=== PATIENT | male | born 1980 | race African-American/Black ===

== ENCOUNTER 2019-02-12 17:36 | Inpatient (IN) | payer OTHER ==
[~2019-02-12] VITALS: Ht 167.6 cm; Wt 99.8 kg
--- OUTSIDE RECORDS SUMMARY | 2019-02-12 17:40 | XMS REPORT | Clinical Summary ---
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 Active Problems Not on file Encounters Care Team Description Date Type Specialty Denisse Castillo, Renal colic (Primary Dx); Hypertension, unspecified type 05/07/2018 Emergency Emergency Medicine - 05/08/2018 after 02/11/2018 Social History Date Tobacco Use Types Packs/Day Years Used Current Some Day Smoker Smokeless Tobacco: Current User Alcohol Use Drinks/Week oz/Week Comments Yes occasional Sex Assigned at Date Recorded Not on file Industry Job Start Date Occupation Not on file Not on file Not on file Travel End Travel History Travel Start No recent travel history available. Last Filed Vital Signs Time Taken Vital Sign Reading 05/08/2018 12:00 AM CDT Blood Pressure 160/83 05/08/2018 12:00 AM CDT Pulse 66 05/07/2018 10:23 PM CDT Temperature 36.2 C (97.2 F) 05/08/2018 12:00 AM CDT Respiratory Rate 22 05/08/2018 12:00 AM CDT Oxygen Saturation 96% - Inhaled Oxygen - Concentration 05/07/2018 10:28 PM CDT Weight 99.8 kg (220 lb) 05/07/2018 10:28 PM CDT Height 170.2 cm (5' 7") 05/07/2018 10:28 PM CDT Body Mass Index 34.46 Plan of Treatment Health Maintenance Due Date Last Done Comments INFLUENZA VACCINE 03/06/2019 Procedures Comments Procedure Name Priority Date/Time Associated Diagnosis CT ABDOMEN PELVIS W STAT 05/07/2018 CONTRAST 10:59 PM CDT URINALYSIS STAT 05/07/2018 10:41 PM CDT ESTIMATED GFR STAT 05/07/2018 10:34 PM CDT COMPREHENSIVE METABOLIC STAT 05/07/2018 PANEL 10:34 PM CDT HC COMPLETE BLD COUNT STAT 05/07/2018 W/AUTO DIFF 10:34 PM CDT after 02/11/2018 Results * CT Abdomen Pelvis W Contrast (05/07/2018 10:59 PM CDT) Specimen Narrative Performed At Examination:CT ABDOMEN PELVIS W CONTRAST RADIANT Clinical History: right sided abd painvomiting Comparison: None. Findings: CT scans are performed using radiation dose reduction techniques.Technical factors are evaluated and adjusted to ensure appropriate moderation of exposure.Automated dose management technology is applied to adjust radiation exposure while achieving a diagnostic quality image. CT scan of the abdomen and pelvis was performed after intravenous contrast. The liver, spleen, pancreas, gallbladder, and adrenal glands are unremarkable. The left kidney is within normal limits without hydronephrosis. There is mild right hydronephrosis and hydroureter. There is a 1 mm right distal ureteral calculus located just proximal to the ureterovesical junction. The appendix is visualized and unremarkable. No bowel thickening or fat stranding is seen. No bowel dilatation is seen. No free air or fluid is seen. Urinary bladder is unremarkable. The visualized lung bases are clear. IMPRESSION: 1. Right 1 mm distal ureteral calculus located just proximal to the ureterovesical junction with mild right hydronephrosis. [facility]-[id number] Procedure Note Interface, Radiology Results Incoming - 05/07/2018 11:09 PM CDT Examination: CT ABDOMEN PELVIS W CONTRAST Clinical History: right sided abd pain vomiting Comparison: None. Findings: CT scans are performed using radiation dose reduction techniques. Technical factors are evaluated and adjusted to ensure appropriate moderation of exposure. Automated dose management technology is applied to adjust radiation exposure while achieving a diagnostic quality image. CT scan of the abdomen and pelvis was performed after intravenous contrast. The liver, spleen, pancreas, gallbladder, and adrenal glands are unremarkable. The left kidney is within normal limits without hydronephrosis. There is mild right hydronephrosis and hydroureter. There is a 1 mm right distal ureteral calculus located just proximal to the ureterovesical junction. The appendix is visualized and unremarkable. No bowel thickening or fat stranding is seen. No bowel dilatation is seen. No free air or fluid is seen. Urinary bladder is unremarkable. The visualized lung bases are clear. IMPRESSION: 1. Right 1 mm distal ureteral calculus located just proximal to the ureterovesical junction with mild right hydronephrosis. [facility]-[id number] Performing Organization Address City/State/Zipcode Phone Number [facility] [address] [place] [address] * Urinalysis (05/07/2018 10:41 PM CDT) Glucose, UA Negative Negative [facility] Bilirubin, UA Negative Negative [facility] Ketones, UA Negative Negative [facility] Specific 1.020 1.001 - 1.035 DEPARTMENT gravity, UA [facility] Blood, UA Trace (A) Negative [facility] pH, UA 6.0 5.0 - 8.5 [facility] Protein, UA Negative Negative [facility] Urobilinogen, <2.0 <2.0 DEPARTMENT UA [facility] Nitrite, UA Negative Negative [facility] Leukocyte Negative Negative DEPARTMENT esterase, UA [facility] Color, UA Yellow [facility] Appearance, UA Clear [facility] Specimen Urine Performing Organization Address City/[facility]/Zipcode Phone Number DEPARTMENT OF [address] [place] [address] [facility] * Estimated GFR (05/07/2018 10:34 PM CDT) Estimated GFR 79 mL/min/1.73 m2 DEPARTMENT Comment: OF PATHOLOGY CatergoryUnitsInte AND GENOMIC rpretation MEDICINE, G1 SEAN >=90 Normal or high PLANTATION G2 EMERGENCY CARE 60-89Mildly decreased CENTER [id number] Mildly to moderately decreased [id number] Moderately to severely decreased G4 15-29Severely decreased G5 <15Kidney failure The eGFR was calculated using the Chronic Kidney Disease Epidemiology Collaboration (CKD-EPI) equation. Interpretation is based on recommendations of the National Kidney Foundation-Kidney Disease Outcomes Quality Initiative (NKF-KDOQI) published in 2014. Specimen Plasma specimen Performing Organization Address City/State/Zipcode Phone Number DEPARTMENT OF [address] [place] [address] [facility] * CBC with platelet and differential (05/07/2018 10:34 PM CDT) Pathologist [facility] WBC 11.42 (H) 4.50 - 11.00 k/uL [facility] RBC 4.64 4.40 - 6.00 m/uL [facility] HGB 14.1 14.0 - 18.0 g/dL [facility] HCT 42.5 41.0 - 51.0 % [facility] MCV 91.6 82.0 - 100.0 fL [facility] MCH 30.4 27.0 - 34.0 pg [facility] MCHC 33.2 31.0 - 37.0 g/dL [facility] RDW - SD 44.6 37.0 - 55.0 fL [facility] MPV 12.4 8.8 - 13.2 fL [facility] Platelet count 214 150 - 400 k/uL [facility] Specimen Blood Performing Organization Address City/State/Zipcode Phone Number DEPARTMENT OF [address] [place] [address] [facility] * Comprehensive metabolic panel (05/07/2018 10:34 PM CDT) Sodium 147 (H) 128 - 145 mEq/L DEPARTMENT OF PATHOLOGY AND GENOMIC MEDICINE, [facility] Potassium 3.7 3.6 - 5.1 mEq/L [facility] CO2 22 18 - 33 mEq/L [facility] Chloride 108 98 - 108 mEq/L [facility] Glucose 133 (H) 73 - 118 mg/dL [facility] Calcium 9.3 8.0 - 10.3 mg/dL [facility] BUN 10 7 - 22 mg/dL [facility] Creatinine 1.3 (H) 0.7 - 1.2 mg/dL [facility] Alkaline 109 53 - 128 U/L DEPARTMENT phosphatase [facility] ALT 26 10 - 47 U/L [facility] AST 33 11 - 38 U/L [facility] Total bilirubin 0.4 0.2 - 1.6 mg/dL [facility] Albumin 3.7 3.3 - 5.5 g/dL [facility] Protein 7.3 6.4 - 8.1 g/dL [facility] Anion gap 17@ANIO (H) 7 - 15 mEq/L [facility] A/G ratio 1.0 0.7 - 3.8 DEPARTMENT OF PATHOLOGY AND GENOMIC MEDICINE, [facility] Specimen Plasma specimen Performing Organization Address City/State/Zipcode Phone Number DEPARTMENT OF [address] [place] [address] PATHOLOGY AND GENOMIC MEDICINE, [facility] after 02/11/2018 Insurance Type Payer Benefit Subscriber ID Effective Phone Address Plan / Dates Group PPO BCBS BCBS xxxxxxxxxxxx [id number] CHOICE resent PPO/SHRADDHA VICKERS PPO Advance Directives Patient has advance care planning documents on file. For more information, zan garrett contact: Constantine Raaz [address] [place] [address]
--- OUTSIDE RECORDS SUMMARY | 2019-02-12 17:41 | XMS REPORT | Encounter Summary ---
Author Organization Unknown Address [address] [place] [address] Phone [phone] Care Team Providers Care Bran Mixer Name Role Phone Dr. Alvarado Finley 3 [phone] Reason for Visit Essential hypertension; Raised prostate specific antigen Instructions 1. Raised prostate specific antigen 2. Essential hypertension 3. Body mass index 30+ - obesity learning about healthy weight 4. Influenza vaccination declined Discussion Note Use and risks of med, and diagnosis w/ prognosis discussed w/ pt. All questions answered. Plan of Care Reminders Provider Appointments Est Patient on or around 11/27/2018 Nydia Diaz MD Est CPX on or around 08/05/2019 Nydia Diaz MD Lab None recorded. Referral None recorded. Procedures None recorded. Surgeries None recorded. Imaging None recorded. Medications Name Start Date lisinopril 10 mg tablet TAKE 1 TABLET BY MOUTH EVERY DAY Medications Administered None recorded. Vitals Height Weight BMI Blood Pressure 5 ft 5 in 229.2 lbs 38.1 kg/m2 150/98 mm[Hg] Lab Results Date Name Specimen Result Interpretation Description Value Range Status Address 08/05/2018 Microalbumin:creatinine Ratio, Urine Microalbumin Random Urine 6 ug/mL [facility] Laboratory: [address] Normal Creatinine Random Urine 177.3 mg/dL 20.0-370.0 mg/dL [facility]: [address] Normal Microalbumin/creatinine (Random Urine) Ratio Calculated 3 mcg/mg creat [facility]: [address] 08/05/2018 HIV-1/2 Ag and Abs Screen, 4TH Gen. W/rflx (78641) Normal HIV Ag/Ab, 4TH Gen non-reactive non-reactive [facility]: [address] 08/05/2018 CBC W/ Auto Diff Wbc 6.33 x10*3/L 4.23-9.07 x10*3/L Final [facility]: [address] Jenny Silver [place] Rbc 5.13 10*12/L 4.63-6.08 10*12/L Final [facility] Hemoglobin 15.70 g/dL 13.70-17.50 g/dL Final [facility]: 9055 [facility] Hematocrit 46.7 % 40.1-51.0 % Final [facility]: [address]055 [facility] Mcv 91.0 fL 80.0-100.0 fL Final [facility]: 9055 [facility] Mch 30.6 pg 25.7-32.2 pg Final [facility]: 9055 [facility] Mchc 33.6 g/dL 32.3-36.5 g/dL Final [facility]: 9055 [facility] RDW-SD 42.5 fL 35.1-43.9 fL Final [facility]: [address] Patel [address] [place] [address] Platelet Count 213.0 k/uL 163.0-337.0 k/uL Final [facility]: 9055 [facility] High Mpv 12.8 fL 7.5-11.5 fL Final [facility]: 9055 [facility] Neut% 46.0 % 34.0-67.9 % Final [facility]: 9055 [facility] Lymph% 41.2 % 21.8-53.1 % Final [facility]: 9055 [facility] Mon% 9.5 % 5.3-12.2 % Final [facility]: 9055 [facility] Eos% 2.8 % 0.8-7.0 % Final [facility]: 9055 [facility] Baso% 0.5 % 0.2-1.2 % Final [facility]: [address] Patel [address] [place] [address] Neut# 2.9 x10*3/L 1.8-5.4 x10*3/L Final [facility]: 9055 Jenny Patel [facility] [place] Lymph# 2.6 x10*3/L 1.3-3.6 x10*3/L Final [facility]: [address]055 [address] [place] Mon# 0.6 x10*3/L 0.3-0.8 x10*3/L Final [facility]: 9055 Jenny Patel [facility] [place] Eos# 0.18 x10*3/L 0.04-0.54 x10*3/L Final [facility]: 9055 Jenny Silver [place] Baso# 0.03 x10*3/L 0.01-0.08 x10*3/L Final [facility]: [facility] [facility] 08/05/2018 CMP, Serum or Plasma Alt 29 U/L 0-55 U/L Final [facility]: [address] Adler [address] Ast 19 U/L 5-34 U/L Final [facility]: [address] Bun 9.2 mg/dL 8.9-20.6 mg/dL Final [facility]: [address] Adler [address] High Alk Phos 158 unit/L 40-150 unit/L Final [facility]: [address] Adler [address] Glucose 96 mg/dL 70-99 mg/dL Final [facility]: [address] Albumin 3.7 g/dL 3.5-5.0 g/dL Final [facility]: [address] Ad[address] Creatinine 1.15 mg/dL 0.72-1.25 mg/dL Final [facility]: [address] Adler [address] eGFR Non- >60 mL/min/1.73m2 Final [facility]: [address] Total Bilirubin 0.3 mg/dL 0.2-1.2 mg/dL Final [facility]: [address] Ad[address] eGFR - >60 mL/min/1.73m2 Final [facility]: [address] Sodium 145 mEq/L 136-145 mEq/L Final [facility]: [address] Ad[address] Potassium 4.7 mEq/L 3.5-5.1 mEq/L Final [facility]: [address] Ad[address] High Chloride 108 mmol/L 98-107 mmol/L Final [facility]: [address] brianna [address] Total Protein 7.3 g/dL 6.4-8.3 g/dL Final [facility]: [address] Calcium 9.4 mg/dL 8.4-10.2 mg/dL Final [facility]: [address]055 Jenny brianna [place] [address], [place] Co2 27.3 mmol/L 22.0-29.0 mmol/L Final [facility]: [address] bri[address] Anion Gap 10 calc Final [facility]: [address] Jenny brianna [address] 08/05/2018 Lipid Panel, Serum Low Hdl 35 mg/dL 40-60 mg/dL Final [facility]: [address] brianna [address] High Triglyceride 229 mg/dL 0-149 mg/dL Final [facility]: [address] bri[address] VLDL Calc. 46 mg/dL Final [facility]: [address] bri[address] cholesterol/HDL Ratio 6.2 mg/dL Final [facility]: [address] brianna [address] High non-HDL Cholesterol Calc. 183 mg/dL 0-160 mg/dL Final [facility]: [address] Jenny brianna [address] High Cholesterol 218 mg/dL 0-199 mg/dL Final [facility]: [address] brianna [address] High LDL Calc. 137 mg/dL 0-130 mg/dL Final [facility]: [address] brianna [address] 08/05/2018 TSH, Serum or Plasma Tsh 0.714 uIU/mL 0.350-4.940 uIU/mL Final [facility]: [address] Jenny brianna [address] 08/05/2018 PSA, Serum or Plasma High PSA, Total 17.19 NG/mL <4.00 NG/mL Final [facility]: [address] brianna [address] 08/05/2018 HbA1C (Hemoglobin a1C), Blood High A1C W/eag 6.1 % 1.0-5.7 % Final [facility]: [facility] Jenny brianna [address] Average Blood Glucose 128 mg/dL Final [facility]: [address] [place], [place] [address]y biranna [address] 08/02/2018 PSA, Serum or Plasma High PSA, Total 25.74 NG/mL <4.00 NG/mL Final [facility]: [address] [place], [place] [address]y brianna [address] 08/02/2018 HIV-1/2 Ag and Abs Screen, 4TH Gen. W/rflx ([id number]) Normal HIV Ag/Ab, 4TH Gen non-reactive non-reactive Final [facility]: [facility] Jenny brianna [address] 08/02/2018 CBC W/ Auto Diff Wbc 6.24 x10*3/L 4.23-9.07 x10*3/L Final [facility]: [address] [place] [address] Rbc 5.09 10*12/L 4.63-6.08 10*12/L Final [facility]: [address] Jenny brianna [address] Hemoglobin 15.70 g/dL 13.70-17.50 g/dL Final [facility]: [address] Jenny brianna [address] Hematocrit 46.6 % 40.1-51.0 % Final [facility]: [address] Jenny brianna [address] Mcv 91.6 fL 80.0-100.0 fL Final [facility]: [facility] Jenny brianna [address] Mch 30.8 pg 25.7-32.2 pg Final [facility]: [address] bri[address] Mchc 33.7 g/dL 32.3-36.5 g/dL Final [facility]: [address] Fwbrianna [address] RDW-SD 42.5 fL 35.1-43.9 fL Final [facility]: [address] Jenny brianna [address] Platelet Count 211.0 k/uL 163.0-337.0 k/uL Final [facility] [address] High Mpv 13.4 fL 7.5-11.5 fL Final [facility]: [address] Jenny brianna [address] Neut% 46.0 % 34.0-67.9 % Final [facility]: [address]055 Jenny Silver [place] Lymph% 45.5 % 21.8-53.1 % Final [facility]: [address] Jenny Silver [place] Mon% 7.2 % 5.3-12.2 % Final [facility]: [address] Jenny Silver [place] Eos% 0.8 % 0.8-7.0 % Final [facility]: [address]055 [address] Silver, [place] Baso% 0.5 % 0.2-1.2 % Final [facility]: [address] Silver [place] Neut# 2.9 x10*3/L 1.8-5.4 x10*3/L Final [facility]: [address] Silver [place] Lymph# 2.8 x10*3/L 1.3-3.6 x10*3/L Final [facility]: [facility] Mon# 0.5 x10*3/L 0.3-0.8 x10*3/L Final [facility]: 9055 [facility] Eos# 0.05 x10*3/L 0.04-0.54 x10*3/L Final [facility]: 9055 [facility] Baso# 0.03 x10*3/L 0.01-0.08 x10*3/L Final [facility]: 9055 [facility] 08/02/2018 CMP, Serum or Plasma Alt 21 U/L 0-55 U/L Final [facility]: [address] Adler [address] Ast 18 U/L 5-34 U/L Final [facility]: 9[address] [facility] Bun 9.3 mg/dL 8.9-20.6 mg/dL Final [facility]: 9055 [facility] High Alk Phos 155 unit/L 40-150 unit/L Final [facility]: [address] Jenny Patel [address] [place] [address] Glucose 89 mg/dL 70-99 mg/dL Final [facility]: 9055 [facility] Albumin 3.9 g/dL 3.5-5.0 g/dL Final [facility]: 9055 [facility] Creatinine 0.96 mg/dL 0.72-1.25 mg/dL Final [facility]: [address] Jenny Adler [address] eGFR Non- >60 mL/min/1.73m2 Final [facility]: [address] Jenny Adler [address] Total Bilirubin 0.3 mg/dL 0.2-1.2 mg/dL Final [facility]: [address] Adler [address] eGFR - >60 mL/min/1.73m2 Final [facility]: 9055 [facility] Sodium 142 mEq/L 136-145 mEq/L Final [facility]: [address] Jenny Adler [address] Potassium 5.1 mEq/L 3.5-5.1 mEq/L Final [facility]: [address] Ad[address] Chloride 107 mmol/L 98-107 mmol/L Final [facility]: [address] Jenny Adler [address] Total Protein 7.4 g/dL 6.4-8.3 g/dL Final [facility]: [address] Adler [address] Calcium 10.1 mg/dL 8.4-10.2 mg/dL Final [facility]: [address] Adler [address] Co2 25.5 mmol/L 22.0-29.0 mmol/L Final [facility]: [address] Jenny Adler [address] Anion Gap 10 calc Final [facility]: [address] Jenny Patel [address] [place] [address] 08/02/2018 Lipid Panel, Serum Low Hdl 34 mg/dL 40-60 mg/dL Final [facility]: [address] Jenny Adler [address] High Triglyceride 363 mg/dL 0-149 mg/dL Final [facility]: [address] Adler [address] VLDL Calc. 73 mg/dL Final [facility]: [address] Ad[address] cholesterol/HDL Ratio 7.6 mg/dL Final [facility]: [address] Jenny Adler [address] High non-HDL Cholesterol Calc. 223 mg/dL 0-160 mg/dL Final [facility]: [address] High Cholesterol 257 mg/dL 0-199 mg/dL Final [facility]: [address] High LDL Calc. 150 mg/dL 0-130 mg/dL Final [facility]: [address] [place] [address], [place] 08/02/2018 TSH, Serum or Plasma Tsh 1.015 uIU/mL 0.350-4.940 uIU/mL Final [facility]: [address] [place] [address], [place] 08/02/2018 HbA1C (Hemoglobin a1C), Blood High A1C W/eag 6.2 % 1.0-5.7 % Final [facility]: [address] Average Blood Glucose 131 mg/dL Final [facility]: [address] [place] [address], [place] 08/02/2018 Electrocardiogram Rate & Rhythm [facility] [place]: [address], [place] Qrs [facility] [place]: [address], [place] Interval [facility] [place]: [address], [place] Q[place] Duration [facility] [place]: [address], [place] Interval [facility] [place]: [address], [place] Urinalysis, Dipstick Color Color yellow [facility] [place]: [address], [place] Color Appearance clear [facility] [place]: [address], [place] Color Glucose negative [facility] [place]: [address], [place] Color Bilirubin negative [facility] ([facility] [place]: [address], [place] Color Ketones negative [facility] [place]: [address], [place] Color Specific Meadow 1.020 [facility] [place]: [address], [place] Color Blood negative [facility] [place]: [address], [place] Color PH 6.0 [facility] ([facility] [place]: [address], [place] Color Protein negative [facility] ([facility] [place]: [address], [place] Color Urobilinogen 0.2 [facility] ([facility]) [place]: [address], [place] Color Nitrites negative [facility] ([facility]) [place]: [address], [place] Color Leukocytes negative [facility] (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) [place] [address] [place] [address] (Work Place) Vaccine List Vaccine Type Tdap 08/02/20180.5 mL Social History Smoking Status Light Tobacco Smoker (/ PPD) Past Encounters 08/30/2018 Raised Prostate Specific Antigen; Essential Hypertension; Body Mass Index 30+ - Obesity; Influenza Vaccination Declined Nydia Diaz MD: [address], [facility] [address] [address], Ph. 08/05/2018 Adult Health Examination; Essential Hypertension; Screening for Malignant Neoplasm of Prostate; Exposure to Blood And/or Body Fluid; Allergic Reaction to Drug Nydia Diaz MD: [id number] [facility], [address] [address], Ph. 08/02/2018 Essential Hypertension; Cigarette Smoker; Body Mass Index 30+ - Obesity; Adult Health Examination; Screening for Malignant Neoplasm of Prostate; Exposure to Blood And/or Body Fluid; Electrocardiogram Abnormal; Depression Screening; Immunization; Seborrhea Faciei Nydia Diaz MD: [address], [facility] [address], [place] [address], Ph. History of Present Illness Note:Pt here to f.u bp, labs. states he did not get any certified mail or voice messages as he has not checked either. <div><div>Pt here to f/u on blood pressure.
</div><div>Pt denies chest pain, shortness of breath, leg swelling, palpitations, blurry vision, or headache.
</div><div>Currently {|not engaging} in exercise regimen and {{observing*|not observing}} salt restriction. {{Has had|No*}} weight loss since last visit.
</div><div>Stable on current medication regimen.
</div><div>No medication side effects.</div> </div><div> his skin is much better w/ the cream only</div> Review of Systems:ROS as noted in the HPI Review of Systems None recorded. Physical Exam Notes: General: well developed, well nourished, obese in no acute distress.

Eyes: PERRL/EOM intact, no conjunctival erythema/discharge/edema.

Ears: grossly normal hearing.

Lungs: clear bilaterally to auscultation without wheezing or rhonchi, good aeration. No retractions

CV: RRR, nl s1s2, no M/R/G

Psych: mood congruent affect. Answers questions appropiately"
--- OUTSIDE RECORDS SUMMARY | 2019-02-12 17:42 | XMS REPORT | Encounter Summary ---
Author Organization Unknown Address [address] [place] [address] Phone [phone] Care Team Providers Care Skin Care Technician Name Role Phone Dr. Alvarado Finley 3 [phone] Ezekiel Cortés MD 115 [phone] Reason for Visit Essential hypertension; Raised prostate specific antigen Instructions 1. Essential hypertension lisinopril 10 mg tablet BMP, serum or plasma 2. Raised prostate specific antigen PSA, serum or plasma 3. Body mass index 30+ - obesity learning about healthy weight 4. Prediabetes HbA1c (hemoglobin A1c), blood 5. Cigarette smoker Discussion Note: None recorded. Plan of Care Reminders Provider Appointments Est Patient on or around 02/07/2019 Nydia Diaz MD Est CPX on or around 08/05/2019 Nydia Diaz MD Lab BMP, Serum or Plasma 11/08/[address] [facility] PSA, Serum or Plasma 11/08/[address] [facility] HbA1C (Hemoglobin a1C), Blood 11/08/[address] [facility] Referral None recorded. Procedures None recorded. Surgeries None recorded. Imaging None recorded. Medications Name Start Date lisinopril 10 mg tablet TAKE 1 TABLET BY MOUTH EVERY DAY Medications Administered None recorded. Vitals Height Weight BMI Blood Pressure 5 ft 5 in 226.4 lbs 37.7 kg/m2 130/86 mm[Hg] Lab Results None recorded. Allergies Code Code System Name Reaction Severity [...] Performed by 08/06/2015 Other Information not available Vaccine List Vaccine Type Tdap 08/02/20180.5 mL Social History Smoking Status Light Tobacco Smoker (08/09 PPD) Past Encounters 11/08/2018 Essential Hypertension; Raised Prostate Specific Antigen; Body Mass Index 30+ - Obesity; Prediabetes; Cigarette Smoker Nydia Diaz MD: [address], [address], [place] [address], Ph. History of Present Illness Note:Pt here to f.u bp, prostate. Specialist said his labs were much better o no biopsy done. <div>
<div><div>Pt here to f/u on blood pressure.
</div><div >Pt denies chest pain, shortness of breath, leg swelling, palpitations, blurry vision, or headache.
</div><div>Currently {|not engaging} in exercise regimen and {{observing*|not observing}} salt restriction. {{Has had|No*}} weight loss since last visit.
</div><div>Stable on current medication regimen.
</div>< div>No medication side effects.</div></div><div>He is smoking much less but vapes often.</div></div> Review of Systems:ROS as noted in the [...]
[2019-02-12] MEDS ORDERED: SODIUM CHLORIDE 0.9% 1000ML 1,000 ML IV STA (17:45)
[2019-02-12 18:49] LABS: BASOPHILS # (AUTO) 0.1 (0.0-0.1); BASOPHILS % 0.5 % (0.0-1.0); EOSINOPHILS % 0.1 % (0.0-6.0); HEMATOCRIT 51.2 % (38.2-49.6); HEMOGLOBIN 17.6 g/dL (14.0-18.0); LYMPHOCYTES # (AUTO) 6.9 (1.0-3.2); LYMPHOCYTES % 44.9 % (18.0-39.1); MEAN CORPUSCULAR HEMOGLOBIN 30.9 pg (28-32); MEAN CORPUSCULAR HGB CONC 34.4 g/dL (31-35); MEAN CORPUSCULAR VOLUME 89.8 fL (81-99); MONOCYTES # (AUTO) 1.1 (0.2-0.8); MONOCYTES % 7.2 % (4.4-11.3); NEUTROPHILS # (AUTO) 7.2 (2.1-6.9); PLATELET COUNT 350 x10e3/uL (140-360); RED CELL DISTRIBUTION WIDTH 13.6 % (11.7-14.4)
[2019-02-12 19:02] LABS: ANION GAP 24.4 mmol/L (8-16); CALCIUM 10.8 mg/dL (8.4-10.2); CREATININE, SERUM 6.2 mg/dL (0.72-1.25); POTASSIUM 4.4 mmol/L (3.5-5.1)
[2019-02-12 19:45] LABS: CREATINE KINASE MB 11.3 ng/mL (0-5.0)
[2019-02-12] MEDS ORDERED: MORPHINE SULFATE INJ 4 MG/ML INJ 1ML IV PRN (20:00)
[2019-02-12] MEDS ORDERED: MORPHINE SULFATE 2 MG/ML SYR 1ML IV PRN (20:00)
[2019-02-12] MEDS ORDERED: ONDANSETRON HCL INJ 2MG/ML 2ML 2 MG/ML VIAL IV PRN (20:00)
--- OUTSIDE RECORDS SUMMARY | 2019-02-12 20:09 | XMS REPORT | Clinical Summary ---
Author Author [facility] Organization [facility] Address Unknown Phone Unavailable Care Team Providers Care Falsework Builder Name Role Phone Asked, No Pcp PCP [...] the ureterovesical junction with mild right hydronephrosis. [facility]-[id number] Procedure Note Interface, Radiology Results Incoming - [...] the ureterovesical junction with mild right hydronephrosis. [facility]-[id number] Performing Organization Address City/State/Zipcode Phone Number [facility] [address] [place] [address] * Urinalysis (05/07/2018 10:41 PM CDT) Glucose, UA Negative Negative [facility] Bilirubin, UA Negative Negative [facility] Ketones, UA Negative Negative [facility] Specific 1.020 1.001 - 1.035 DEPARTMENT gravity, UA [facility] Blood, UA Trace (A) Negative [facility] pH, UA 6.0 5.0 - 8.5 [facility] Protein, UA Negative Negative [facility] Urobilinogen, <2.0 <2.0 DEPARTMENT UA [facility] Nitrite, UA Negative Negative [facility] Leukocyte Negative Negative DEPARTMENT esterase, UA [facility] Color, UA Yellow [facility] Appearance, UA Clear [facility] Specimen Urine Performing Organization Address City/[facility]/Zipcode Phone Number DEPARTMENT OF [address] [place] [address] [facility] * Estimated GFR (05/07/2018 10:34 PM CDT) Estimated GFR 79 mL/min/1.73 m2 DEPARTMENT Comment: OF PATHOLOGY CatergoryUnitsInte AND GENOMIC rpretation MEDICINE, G1 SEAN >=90 Normal or high PLANTATION G2 EMERGENCY CARE 60-89Mildly decreased CENTER [id number] Mildly to moderately decreased [id number] Moderately to severely decreased G4 15-29Severely decreased G5 <15Kidney failure The eGFR was calculated using the Chronic Kidney Disease Epidemiology Collaboration (CKD-EPI) equation. Interpretation is based on recommendations of the National Kidney Foundation-Kidney Disease Outcomes Quality Initiative (NKF-KDOQI) published in 2014. Specimen Plasma specimen Performing Organization Address City/State/Zipcode Phone Number DEPARTMENT OF [address] [place] [address] [facility] * CBC with platelet and differential (05/07/2018 10:34 PM CDT) Pathologist [facility] [place] WBC 11.42 (H) 4.50 - 11.00 k/uL [facility] RBC 4.64 4.40 - 6.00 m/uL [facility] HGB 14.1 14.0 - 18.0 g/dL [facility] HCT 42.5 41.0 - 51.0 % [facility] MCV 91.6 82.0 - 100.0 fL [facility] MCH 30.4 27.0 - 34.0 pg [facility] MCHC 33.2 31.0 - 37.0 g/dL [facility] RDW - SD 44.6 37.0 - 55.0 fL [facility] MPV 12.4 8.8 - 13.2 fL [facility] Platelet count 214 150 - 400 k/uL [facility] Specimen Blood Performing Organization Address City/State/Zipcode Phone Number DEPARTMENT OF [address] [place] [address] [facility] * Comprehensive metabolic panel (05/07/2018 10:34 PM CDT) Sodium 147 (H) 128 - 145 mEq/L DEPARTMENT OF PATHOLOGY AND GENOMIC MEDICINE, [facility] Potassium 3.7 3.6 - 5.1 mEq/L [facility] CO2 22 18 - 33 mEq/L [facility] Chloride 108 98 - 108 mEq/L [facility] Glucose 133 (H) 73 - 118 mg/dL [facility] Calcium 9.3 8.0 - 10.3 mg/dL [facility] BUN 10 7 - 22 mg/dL [facility] Creatinine 1.3 (H) 0.7 - 1.2 mg/dL [facility] Alkaline 109 53 - 128 U/L DEPARTMENT phosphatase [facility] ALT 26 10 - 47 U/L [facility] AST 33 11 - 38 U/L [facility] Total bilirubin 0.4 0.2 - 1.6 mg/dL [facility] Albumin 3.7 3.3 - 5.5 g/dL [facility] Protein 7.3 6.4 - 8.1 g/dL [facility] Anion gap 17@ANIO (H) 7 - 15 mEq/L [facility] A/G ratio 1.0 0.7 - 3.8 DEPARTMENT OF PATHOLOGY AND GENOMIC MEDICINE, [facility] Specimen Plasma specimen Performing Organization Address City/State/Zipcode Phone Number DEPARTMENT OF [address] [place] [address] PATHOLOGY AND GENOMIC MEDICINE, [facility] after 02/11/2018 Insurance Type Payer Benefit Subscriber ID Effective Phone Address Plan / Dates Group PPO BCBS BCBS xxxxxxxxxxxx [id number] CHOICE resent PPO/SHRADDHA VICKERS PPO Advance Directives Patient has advance care planning documents on file. For more information, zan garrett contact: Constantine Raza [address] [place] [address]
[2019-02-12] MEDS: SODIUM CHLORIDE 0.9% 1000ML 1,000 ML IV SCH (21:36)
[2019-02-12 22:03] VITALS: BP 111/59
[2019-02-12 22:25] VITALS: BP 111/59
--- NOTE | 2019-02-12 22:26 | NUR ---
PATIENT RECEIVED FROM EMERGENCY DEPARTMENT PER STRETCHER AT 2152. HE'S ALERT AND ORIENTED X4, NO RESPIRATORY DISTRESS OBSERVED AND HE DENIES PAIN. SKIN INTEGRITY INTACT, NO EDEMA NOTED TO THE EXTREMITIES. URINAL AND CALL LIGHT WITHIN EASY REACH, BED ALARM ON AND PATIENT INSTRUCTED TO CALL FOR ASSISTANCE UPON GETTING OUT OF THE BED SINCE HE STATED THAT HE FELL AT HOME YESTERDAY GETTING INTO HIS CAR.
[2019-02-12 22:30] VITALS: BP 111/59
[2019-02-13] VITALS (8 sets, daily range): BP systolic 90–114; BP diastolic 50–60
[2019-02-13] MEDS ORDERED: LISINOPRIL2.5 MG PO (00:26)
[2019-02-13] MEDS: SODIUM CHLORIDE 0.9% 1000ML 1,000 ML IV SCH ×4 (02:00→23:51)
--- NOTE | 2019-02-13 02:25 | NUR ---
PATIENT IS SOUNDLY ASLEEP, HE'S EASY TO AROUSE. NO RESPIRATORY DISTRESS OBSERVED, HE DENIES PAIN. BED ALARM ON, CALL LIGHT AND URINAL WITHIN EASY REACH
--- NOTE | 2019-02-13 04:51 | NUR ---
PATIENT HAS NOT URINATED; HE WAS ASSISTED TO THE RESTROOM TO VOID, HE URINATED LESS THAN 100ML OF YELLOW COLOR URINE AND DENIES THE URGE TO VOID. HIS BUN AND CREATININE ARE ELEVATED, HE'S RECEIVING IV FLUID AT 250ML/HR AND NO EDEMA NOTED TO THE EXTREMITIES. WILL NOTIFY THE VENTILATING ENGINEER OF THE PATIENT'S DECREASE URINE OUTPUT.
[2019-02-13 06:42] LABS: BASOPHILS % 0.3 % (0.0-1.0); EOSINOPHILS # (AUTO) 0.1 (0.0-0.4); EOSINOPHILS % 0.4 % (0.0-6.0); HEMATOCRIT 42.3 % (38.2-49.6); HEMOGLOBIN 14.1 g/dL (14.0-18.0); LYMPHOCYTES # (AUTO) 5.7 (1.0-3.2); LYMPHOCYTES % 45.5 % (18.0-39.1); MEAN CORPUSCULAR HEMOGLOBIN 30.8 pg (28-32); MEAN CORPUSCULAR HGB CONC 33.3 g/dL (31-35); MEAN CORPUSCULAR VOLUME 92.4 fL (81-99); MONOCYTES # (AUTO) 1.2 (0.2-0.8); MONOCYTES % 9.7 % (4.4-11.3); NEUTROPHILS # (AUTO) 5.5 (2.1-6.9); NEUTROPHILS % 43.8 % (38.7-80.0); PLATELET COUNT 257 x10e3/uL (140-360); RED BLOOD COUNT 4.58 x10e6/uL (4.3-5.7); RED CELL DISTRIBUTION WIDTH 13.7 % (11.7-14.4)
[2019-02-13 07:02] LABS: ANION GAP 19.5 mmol/L (8-16); CALCIUM 8.6 mg/dL (8.4-10.2); CREATININE, SERUM 5.94 mg/dL (0.72-1.25); POTASSIUM 4.5 mmol/L (3.5-5.1)
--- NOTE | 2019-02-13 07:30 | NUR ---
REC'D PATIENT AAOX3, NO S/S OF DISTRESS, RT AC IV IS INTACT AND PATENT. FLUIDS RUNNING AT 250 ML/HR. ASSISTANT PRESS OPERATOR OFFSET NURSE NOTIFIED ABOUT PATIENT ONLY URINATING LESS THAN 100 ML/HR LIGHT FRANTZ COLOR IN [address] HERNÁNDEZ.
[2019-02-13] MEDS ORDERED: SODIUM CHLORIDE 0.9% 1000ML 1,000 ML ONE ×2 (10:23→15:02)
--- NOTE | 2019-02-13 10:30 | NUR ---
DR. KAUFMAN (COVERING FOR DR. HERNÁNDEZ) SAW PATIENT AND NOTIFIED ABOUT PATIENT'S URINE STATUS. SHE SAID TO CON'T WITH FLUIDS. ORDERS TO BE CARRIED OUT IF ANY.
--- NOTE | 2019-02-13 17:08 | Consultation ---
DATE OF CONSULTATION: REASON FOR CONSULTATION: Acute kidney injury. HISTORY OF PRESENT ILLNESS: The patient is a 39-year-old male with no past medical history, who was admitted with 2 days history of excessive sweating, vomiting, and unable to keep anything down. The patient was found to have acute kidney injury with creatinine of 6. He was started on aggressive IV fluids and this morning, creatinine is at 5.9. Per the patient, last 2 days he has been working outside in the sun and got exhausted, and was having lots of cramps, and unable to keep anything down and constant vomiting. This morning, he feels a lot better. Urine output is low and dark. Denies having any shortness of breath. No history of any NSAID use. PAST MEDICAL HISTORY: None. PAST SURGICAL HISTORY: None. FAMILY HISTORY: No history of any kidney disease. SOCIAL HISTORY: No history of smoking, alcohol, or recreational drug abuse. REVIEW OF SYSTEMS: Pertinent positives ones as per HPI. PHYSICAL EXAMINATION: VITAL SIGNS: Blood pressure 90/50, pulse of 59, respirations 16, temperature 97.2, and 100% on room air. GENERAL: Awake, alert, and oriented x3, not in apparent distress. HEENT: PERRLA. Extraocular movements intact. NECK: No JVD. HEART: S1 and S2. LUNGS: Clear to auscultation bilaterally. ABDOMEN: Soft, nontender, and nondistended. Bowel sounds positive. EXTREMITIES: No cyanosis, clubbing, or edema. NEUROLOGIC: No focal deficits. SKIN: No new rash. LABORATORY DATA: Sodium 138, potassium 4.5, chloride 101, CO2 of 22, BUN 41, creatinine 5.9, GFR 13, glucose 91, calcium 8.6. CK 921. Troponin negative. White count 12.5, hemoglobin 14.1, platelet count is 257. ASSESSMENT/PLAN: Acute kidney injury, likely prerenal insufficiency, acute tubular necrosis from severe volume depletion. Continue with aggressive IV fluid resuscitation. Check urine lytes. Repeat the labs in the morning. Avoid all nephrotoxic medications. I want to thank, Dr. Adams, for the consult. We will follow the patient with you. Kanika Nolan MD AFS/MODL /[id number]
--- NOTE | 2019-02-13 18:44 | NUR ---
PATIENT IS IN BED RESTING WITH EYES OPENED. NO S/S OF DISTRESS. SIDE RAILS UP X2, BED IN LOWEST POSITION,AND CALL ARCOS WITHIN REACH. NOTIFIED PATIENT TO ASK FOR ASSISTANCE.
--- NOTE | 2019-02-13 19:21 | NUR ---
received patient aaox4, stable condition. bed locked and in lowest position, call light within reach. will continue to monitor.
[2019-02-13 23:16] LABS: CREATININE,URINE RANDOM 98.45 mg/dL (63-166)
[2019-02-14] MEDS: SODIUM CHLORIDE 0.9% 1000ML 1,000 ML IV SCH ×6 (00:49→20:55)
[2019-02-14 04:00] VITALS: BP 99/51
[2019-02-14 06:57] LABS: ANION GAP 11.7 mmol/L (8-16); CALCIUM 8.2 mg/dL (8.4-10.2); CREATININE, SERUM 2.47 mg/dL (0.72-1.25); POTASSIUM 4.7 mmol/L (3.5-5.1)
--- NOTE | 2019-02-14 07:00 | NUR ---
received am report from RN, morning rounds done. pt is awake, alert, no s/s of distress. call light within reach. no complaints from pt at this time.
--- NOTE | 2019-02-14 07:17 | NUR ---
report given to oncoming nurse. patient aaox4, denies pain, denies needs, stable condition. urinary output for pm shift not adequately documented as patient stopped using urinal and started using toilet. patient states "i went about 5 times, each time it was a lot." instructed patient to use urinal and call for nurse when urinals are full. patient verbalized understanding. bed locked and in lowest position, call light within easy reach.
[2019-02-14 08:07] VITALS: BP 124/60
[2019-02-14 12:09] VITALS: BP 132/61
--- NOTE | 2019-02-14 12:33 | Progress Note ---
DATE: 02/14/2019 SUBJECTIVE: Mr. 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 He was found to have elevated creatinine and CPK. He was started on IV fluids. We are monitoring the renal function closely. PHYSICAL EXAMINATION: GENERAL: Today, he is awake and alert. VITAL SIGNS: Temperature is 97.3, blood pressure 124/60. HEART: Regular rate. LUNGS: Clear to auscultation. ABDOMEN: Soft. LABORATORY DATA: On the blood work, potassium 4.7, creatinine went down to 2.47, and glucose 89. White count 12.5, hemoglobin 14.1, and hematocrit 42.3. ASSESSMENT AND PLAN: 1. Acute renal failure, probably prerenal. 2. Acute tubular necrosis with severe volume depletion. Continue aggressive IV fluids. Continue to monitor electrolytes. Once creatinine is close to normal, the patient is going to be able to go home. All this was discussed with the patient. All questions were answered to satisfaction. MD MOISES Moser/ALAINAL /[id number]
[2019-02-14 16:18] VITALS: BP 129/61
[2019-02-14 20:00] VITALS: BP 100/53
[2019-02-14 20:56] VITALS: BP 100/53
[2019-02-15] VITALS: BP 128/57
[2019-02-15] MEDS: SODIUM CHLORIDE 0.9% 1000ML 1,000 ML IV SCH ×3 (01:35→08:38)
[2019-02-15 04:00] VITALS: BP 144/79
[2019-02-15 06:34] LABS: ANION GAP 11.5 mmol/L (8-16); BLOOD UREA NITROGEN 21 mg/dL (7-26); BUN/CREATININE RATIO 16 (6-25); CALCIUM 8.3 mg/dL (8.4-10.2); CARBON DIOXIDE 19 mmol/L (22-29); CHLORIDE 116 mmol/L (98-107); CREATININE, SERUM 1.31 mg/dL (0.72-1.25); EST GLOMERULAR FILTRATION RATE > 60 ML/MIN (60-); GLUCOSE 88 mg/dL (74-118); POTASSIUM 4.5 mmol/L (3.5-5.1); SODIUM 142 mmol/L (136-145)
--- NOTE | 2019-02-15 07:11 | NUR ---
REPORT GIVEN TO ONCOMING NURSE, PATIENT IN STABLE CONDITION.
--- NOTE | 2019-02-15 07:41 | NUR ---
RECEIVED PATIENT AWAKE RESTING IN BED NO SIGNS OF DISTRESS. BED LOW, WHEELS LOCKED, SIDE RAILS X2. CALL LIGHT IN REACH WILL CONTINUE TO MONITOR PATIENT.
[2019-02-15 08:00] VITALS: BP 142/96
[2019-02-15 09:13] VITALS: BP 142/96
--- NOTE | 2019-02-15 09:30 | NUR ---
PATIENT A/O X3, EVEN RESPIRATIONS ON RA. BOWEL SOUNDS ACTIVE, SKIN INTACT, NO EDEMA. RIGHT AC 20 GAUGE IV WITH NS @ 150 CC/HR. IV INTACT/PATENT. PATIENT AMBULATES INDEPENDENTLY. TELEMETRY #30 SR. CALL LIGHT IN REACH, WILL CONTINUE TO MONITOR PATIENT.
--- NOTE | 2019-02-15 11:25 | NUR ---
SPOKE TO MD TALLEY. OK FOR PATIENT TO DISCHARGE.
--- NOTE | 2019-02-15 11:45 | NUR ---
REMOVED PATIENTS IV. CATHETER TIP INTACT ON REMOVAL AND PRESSURE DRESSING APPLIED.
--- NOTE | 2019-02-15 12:42 | NUR ---
PATIENT DISCHARGED FROM FACILITY. PATIENT GATHERED ALL PERSONAL BELONGINGS, DISCHARGE INSTRUCTIONS AND FOLLOW UP INFORMATION. LEFT UNIT IN WHEELCHAIR AND WENT HOME VIA PRIVATE AUTO. NO SIGNS OF DISTRESS WHEN LEAVING FACILITY.
== END 2019-02-15 12:42 | disposition home or self-care (01) | DRG 922 ==
LOC: ER 17:36 → ERHOLD 20:06 → MED/SURG 21:52
PROVIDERS: ADMIT Internal Medicine; ATTEND Internal Medicine
DX: T67.3XXA Heat exhaustion, anhydrotic, initial encounter (principal); N17.0 Acute kidney failure with tubular necrosis; M62.82 Rhabdomyolysis; E86.0 Dehydration; X30.XXXA Exposure to excessive natural heat, initial encounter; Y93.89 Activity, other specified; I10 Essential (primary) hypertension
CPT/HCPCS: 36415; 80048; 82550; 82553; 82570; 84300; 84484; 85025; 99284; J7030